=== PATIENT | female | born 1990 | race Caucasian/White ===

== ENCOUNTER 2021-11-13 15:03 | Emergency (ER) | payer OTHER, SELFPAY ==
[2021-11-13 15:39] VITALS: BP 103/52; PULSE 92; RESP 16; TEMP 36.9; O2SAT 100
== END 2021-11-13 16:55 | disposition left against medical advice (07) ==
LOC: EXPBETH 15:35
PROVIDERS: Emergency Provider Nurse Practitioner
DX: Z20.822 Contact with and (suspected) exposure to COVID-19 (principal)
CPT/HCPCS: 99199

== ENCOUNTER 2022-03-20 11:27 | Emergency (ER) | payer OTHER, SELFPAY ==
--- NOTE | 2022-03-20 11:30 | ED.EAR ---
HPI - Ear Problem General Chief complaint: Ear Stated complaint: Right ear Time Seen by Provider: 03/20/22 12:00 Source: patient and RN notes reviewed Mode of arrival: ambulatory Limitations: no limitations History of Present Illness HPI Narrative: Three 1-year-old female who is 35 weeks presents with concern for right ear pain. Reports symptoms started a couple weeks ago. Reports she has been taking Tylenol. Reports a feeling of her ear being clogged. She reports nasal congestion. Denies fever, body aches, chills, sweats, decreased hearing. MD Complaint: ear pain Related Data Allergies Allergy/AdvReac Type Severity Reaction Status Date / Time No Known Allergies Allergy Unverified 12/15/13 12:14 Review of Systems Review of Systems: CONSTITUTIONAL: Denies malaise, chills, sweats, or fever. EYES: Denies visual changes, redness, or discharge. ENT: Denies rhinorrhea, congestion, right ear pain. Denies sinus pain, and sore throat CARDIOVASCULAR: Denies chest pain, palpitations, or edema. RESPIRATORY: Denies cough. Denies dyspnea. GASTROINTESTINAL: Denies abdominal pain, nausea, vomiting, diarrhea SKIN: Denies rash or itching. MUSCULOSKELETAL: Denies myalgia. NEUROLOGIC: Denies headache. All systems reviewed & are unremarkable except as noted in HPI and below PMFSH Comments At time of signature, agree with nursing past medical, surgical, social and family history. There is no relevant family history pertinent to the presenting complaint Exam Narrative: GENERAL: Well-appearing, well-nourished, and in no acute distress. HEAD: Normocephalic EYES: PERRLA, conjunctivae clear ENT: Nares clear, turbinates edematous, clear discharge. Mucous membranes moist. TM pearly anthony with dull light reflex and slight bulging without erythema on the right, sharp reflex on the left; no tragal tenderness. Oropharynx not erythematous without lesions. Tonsils not enlarged and without exudate, no drooling, no hoarseness, no trismus, uvula midline. NECK: Supple. No lymphadenopathy CHEST: Clear to auscultation, breath sounds equal. No wheezing, rhonchi, rales, or stridor. No respiratory distress, speaks in full sentences. HEART: Regular rate and rhythm. No murmur heard. SKIN: Warm, dry, no rash. NEURO: Alert and oriented x3. PSYCH: Normal mood and affect Course Course Emergency Course: Patient is aware of diagnosis, understands and agrees to treatment plan. Anticipatory guidance given. Patient agrees to follow-up as directed and is aware of reasons to seek care at the emergency department. Portions of this record may have been created with voice recognition software Level of Care: Express Care Visit Vital Signs Vital signs: Reviewed. Medical Decision Making MDM Narrative Medical decision making narrative: Differential diagnosis considered: virus, strep pharyngitis, allergic rhinitis, upper respiratory tract infection, sinusitis, rhinosinusitis, nasopharyngitis. viral pharyngitis, otitis media, otitis externa, otitis effusion, cerumen impaction, foreign body. Exam findings show no acute concerns or changes; patient is non-toxic appearing and is in no distress. Patient is appropriate for outpatient treatment and follow-up. Critical Care Time Critical Care Time Critical Care Time: No Discharge Plan Discharge Clinical Impression: Acute dysfunction of right eustachian tube Patient Disposition: Home, Self-Care Condition: Stable Instructions: Fluid In The Ear (Serous Otitis Media) (ED) Additional Instructions: Flonase nasal spray, 2 sprays in each nostril once daily until symptoms improve Afrin nasal spray, do not use for more than 3 consecutive days. Also, recommend symptomatic treatment includes: rest, fluids, and increase humidity of the air at home. Recommend Acetaminophen as directed on the bottle to reduce fever, pain Please schedule a follow-up visit with your personal physician for further evaluation and treatment wi
[2022-03-20 11:39] VITALS: BP 107/59; PULSE 105; RESP 16; TEMP 36.4; O2SAT 100
== END 2022-03-20 12:18 | disposition home or self-care (01) ==
PROVIDERS: Emergency Provider Nurse Practitioner
DX: O99.891 Other specified diseases and conditions complicating pregnancy (principal); Z3A.35 35 weeks gestation of pregnancy; H69.91 Unspecified Eustachian tube disorder, right ear
CPT/HCPCS: 99213; G0463

== ENCOUNTER 2022-04-04 02:15 | Observation (INO) | payer OTHER, SELFPAY ==
[2022-04-04] VITALS (35 sets, daily range): BP systolic 110–127; BP diastolic 68–91; PULSE 41–138; O2SAT 84–100; BMI 22.9
--- NOTE | 2022-04-04 04:44 | OBADM ---
This patient, Virgen nA, admitted to the OB room Labor/Delivery/Recovery 104 for observation. Patient/family oriented to hospital policies and general routines including ID bracelet, bed and alarms, visiting hours, pain management, procedures, bathroom and other care routines, personal items, smoking policy, room service/diet, and visiting hours. Patient/Family are encouraged to report perceived risks to care and to ask questions if they do not understand what they are told or what they should do.
--- NOTE | 2022-04-06 16:02 | PM.OBTRLD ---
OB - Triage/Final Diagnosis Visit Information Date of evaluation: 04/04/22 Reason for evaluation: threatened labor Comments/Additional reasons for admission: I have assessed the risk for this patient, Virgen An, and determined that she would benefit from observation care.
== END 2022-04-04 04:58 | disposition home or self-care (01) ==
PROVIDERS: Admitting Provider Obstetrics & Gynecology; Visit Provider Obstetrics & Gynecology
DX: O47.9 False labor, unspecified (principal); Z3A.00 Weeks of gestation of pregnancy not specified
CPT/HCPCS: G0378; G0379

== ENCOUNTER 2022-04-13 06:19 | Inpatient (IN) | payer OTHER, SELFPAY ==
[2022-04-13] VITALS (53 sets, daily range): BP systolic 101–141; BP diastolic 43–88; PULSE 67–137; RESP 16–18; TEMP 36.2–36.6; O2SAT 100; BMI 23.4
--- OUTSIDE RECORDS SUMMARY | 2022-04-13 06:43 | XMS_ITS | Encounter Summary ---
:1990 Author Reason for Visit OB visit Assessment and Plan 1. Routine care 2. Grand multipara 3. Candidal vulvovaginitis ? Diflucan 150 mg tablet Discussion Note: None recorded.Patient educational handouts: No information available. Plan of Care Reminders Provider Appointments Ob Routine 04/17/2022 9:15AM Neisha Ramos MD ? Ob Routine 04/24/2022 9:15AM Neisha Ramos MD Lab None recorded. ? ? Referral None recorded. ? ? Procedures None recorded. ? ? Surgeries None recorded. ? ? Imaging None recorded. ? ? Medications Name Start Date ? ? fluticasone propionate 50 mcg/actuation nasal spray,roy spension ? USE 2 SPRAYS IN EACH NOSTRIL DAILY iron ? ? Medications Administered None recorded. Vitals Height Weight BMI Blood Pressure 5 ft 9 in 146 lbs 21.6 kg/m2 102/66 mm[Hg] Results Lab Results None recorded. Allergies Code Code System Name Reaction Severity Onset NKDA ? ? ? Problems Name Status Onset Date Source ? 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 Late Entry into Care Active 11/23/2021 ? Active 12/14/2021 ? Anemia of Active 03/27/2022 ? Procedures None recorded. Vaccine List None recorded. Social History Tobacco Smoking Status Never Smoker What is the highest grade or level of school you have comple ese or [id number] the highest degree you have received? What type of diet are you following? REGULAR
--- OUTSIDE RECORDS SUMMARY | 2022-04-13 06:43 | XMS_ITS | Encounter Summary ---
:1990 Author Reason for Visit OB visit Assessment and Plan 1. Routine care ? drug screen, urine 2. Anemia ? CBC w/ auto diff Discussion Note: None recorded.Patient educational handouts: No information available. Plan of Care Reminders Provider Appointments Ob Routine 04/17/2022 9:15AM Neisha Ramos MD ? Ob Routine 04/24/2022 9:15AM Neisha Ramos MD Lab Drug Screen, Urine 03/13/2022 [place] ? CBC W/ Auto Diff 03/13/2022 [facility] (Lab) Referral None recorded. ? ? Procedures None recorded. ? ? Surgeries None recorded. ? ? Imaging None recorded. ? ? Medications Name Start Date ? ? fluticasone propionate 50 mcg/actuation nasal spray,roy spension ? USE 2 SPRAYS IN EACH NOSTRIL DAILY iron ? ? Medications Administered None recorded. Vitals Height Weight BMI Blood Pressure 5 ft 9 in 154 lbs 22.7 kg/m2 111/68 mm[Hg] Results Lab Results Date Name Specimen Result Interpretation Description Value Range Status Address ? 03/13/2022 CBC W/ ? [facility] 9[facility]4 3[facility]10[facility]2 [facility] 10'3/uL 10'3/uL [address] [facility], [place] ? ? Low Rbc 3.20 (based on [facility]: 10'6/uL documented [address] sex) [facility] ld 4.10-5.30 ,
--- OUTSIDE RECORDS SUMMARY | 2022-04-13 06:43 | XMS_ITS | Encounter Summary ---
:1990 Author Reason for Visit OB visit Assessment and Plan 1. Grand multipara 2. Routine care Discussion Note: None recorded.Patient educational handouts: No [...] BMI Blood Pressure 5 ft 9 in 151 lbs 22.3 kg/m2 108/68 mm[Hg] Results Lab Results None recorded. Allergies [...] of school you have comple ese or [id number] the highest degree you have received? What type of diet are you following? REGULAR Are you able to walk? YESWOREST Has tobacco cessation counseling been provided? N
--- OUTSIDE RECORDS SUMMARY | 2022-04-13 06:43 | XMS_ITS | Encounter Summary ---
:1990 Author Reason for Visit OB visit Assessment and Plan Assessment Note Patient is ___weeks . Discussed plan. 1. Routine care Discussion Note: None recorded.Patient educational [...] BMI Blood Pressure 5 ft 9 in 147 lbs 21.7 kg/m2 111/69 mm[Hg] Results Lab Results None recorded. Allergies [...] of school you have comple ese or [id number] the highest degree you have received? What type of diet are you following? REGULAR Are you able to walk? YE
--- OUTSIDE RECORDS SUMMARY | 2022-04-13 06:43 | XMS_ITS | Encounter Summary ---
:1990 Author Reason for Visit OB visit Assessment and Plan 1. Grand multipara 2. Anemia of 3. Late entry into care Discussion Note: None recorded.Patient educational handouts: [...] BMI Blood Pressure 5 ft 9 in 155 lbs 22.9 kg/m2 117/76 mm[Hg] Results Lab Results None recorded. Allergies [...] of school you have comple ese or [id number] the highest degree you have received? What type of diet are you following? REGULAR Are you able to walk? YESWOREST
--- OUTSIDE RECORDS SUMMARY | 2022-04-13 06:43 | XMS_ITS | Encounter Summary ---
[...] BMI Blood Pressure 5 ft 9 in 152 lbs 22.4 kg/m2 103/64 mm[Hg] Results Lab Results None recorded. Allergies [...] of school you have comple ese or [id number] the highest degree you have received? What type of diet are you following? REGULAR Are you able to walk? YE
--- OUTSIDE RECORDS SUMMARY | 2022-04-13 06:43 | XMS_ITS | Encounter Summary ---
:1990 Author Reason for Visit None recorded. Assessment and Plan 1. Grand multipara 2. Anemia of Discussion Note: None recorded.Patient educational handouts: No [...] ft 9 in 154 lbs 22.7 kg/m2 114/75 mm[Hg] Results Lab Results None recorded. Allergies [...] of school you have comple ese or [id number] the highest degree you have received? What type of diet are you following? REGULAR Are you able to walk? YESWOREST Has tobacco cessation counseling been provided? N
--- OUTSIDE RECORDS SUMMARY | 2022-04-13 06:43 | XMS_ITS ---
:1990 Author Care Team Providers Name Role Phone Richard Neisha Arriolase Primary Care Provider Unavailable Allergies Code Code System Name Reaction Severity Status Onset NKDA ? Medications Name Status Start Date Stop Date ? ? amoxicillin 500 mg tablet Completed ? 2021 TAKE 1 TABLET BY MOUTH 2 TIMES DAILY FOR 7 DAYS benzonatate 100 mg capsule Completed ? 11/23 ciprofloxacin 0.3 %-dexamethasone 0.1 % ear drops,suspension Com pleted ? 11/23/2021 INSTILL 4 DROPS IN THE RIGHT EAR EVERY 12 HOURS FOR 7 DAYS cyclobenzaprine 10 mg tablet Completed ? TAKE 1 TABLET BY MOUTH THREE TIMES DAILY NEEDED FOR MUSCLE S PASMS fluconazole 150 mg tablet Completed ? 2021 TAKE 1 TABLET BY MOUTH EVERY 72 HOURS FOR 6 DAYS fluticasone propionate 50 mcg/actuation nasal spray,suspension A ctive ? Not available USE 2 SPRAYS IN EACH NOSTRIL DAILY ibuprofen 800 mg tablet Completed ? 11/23/19 TAKE 1 TABLET BY MOUTH EVERY 8 HOURS NEEDED FOR FEVER iron Active ? Not available ondansetron HCl 4 mg tablet Completed ? 02/04 Active ? Not available prochlorperazine maleate 5 mg tablet Completed ? 11/23/2021 TAKE 1 TO 2 TABLETS BY MOUTH EVERY 6 HOURS NEEDED FOR NAUSEA Problems Name Status Onset Date Source ? 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 Late Entry into Care Active 11/23/2021 ? Active 12/14/2021 ? Anemia of Active 03/27/2022 ? Procedures Date Name Performed by ? 11/23/2021 , Obstetric, [facility]
--- OUTSIDE RECORDS SUMMARY | 2022-04-13 06:43 | XMS_ITS | Encounter Summary ---
:1990 Author Reason for Visit OB visit Assessment and Plan 1. Routine care ? drug screen, urine 2. Anemia of Discussion Note: None recorded.Patient educational handouts: No information available. Plan of Care Reminders Provider Appointments Ob Routine 04/17/2022 9:15AM Neisha Ramos MD ? Ob Routine 04/24/2022 9:15AM Neisha Ramos MD Lab Drug Screen, Urine 03/27/2022 [place] Referral None recorded. ? ? Procedures None recorded. ? ? Surgeries None recorded. ? ? Imaging None recorded. ? ? Medications Name Start Date ? ? fluticasone propionate 50 mcg/actuation nasal spray,roy spension ? USE 2 SPRAYS IN EACH NOSTRIL DAILY iron ? ? Medications Administered None recorded. Vitals Height Weight BMI Blood Pressure 5 ft 9 in 156 lbs 23 kg/m2 111/73 mm[Hg] Results Lab Results Date Name Specimen Result Interpretation Description Value Range Status Address ? 03/27/2022 Drug Screen, Urine ? Amphetamines: negative ? ? Ismael: Urine [address] [place] ? ? Urine ? Cannabinoids: negative ? ? Ismael: [address] [place] ? ? Urine ? Opiates: negative ? ? [place]:
--- NOTE | 2022-04-13 06:52 | LDADM ---
This patient, Virgen An, was admitted to Labor/Delivery/Recovery 105 on 04/13/22 at 06:19. Plans for labor, pain management and were discussed with patient. Patient/family oriented to hospital policies and general routines including ID bracelet, bed and alarms, visiting hours, pain management, procedures, bathroom and other care routines, personal items, smoking policy, room service/diet and guest tray routines, infant security routines, and visiting hours. Patient/Family are encouraged to report perceived risks to care and to ask questions if they do not understand what they are told or what they should do. See OBIX for further documentation.
--- NOTE | 2022-04-13 07:13 | WPDHPUPDATE1 ---
History and Physical Update Update Date/Time: 04/13/22 07:13 This patient is a 31 year multiparous female who presents for labor. Artificial rupture of membranes was performed. She may have artery ruptured. There was reassuring status. She is 4 cm/ 80%/ -1. Expected management. History and Physical has been reviewed, including an updated exam of the patient. There are NO changes in the patient's condition. Risks, benefits, and alternatives have been discussed and questions answered. Patient agrees to proceed with procedure.
[2022-04-13 07:16] LABS: Basophils Percent Auto 0.2 % (0.2-1.2); Eosinophils Absolute Auto 0.2 K/mm3 (0-0.3); Eosinophils Percent Auto 1.2 % (0-4.4); Hematocrit 30.7 % (37.0-47.0); Hemoglobin 9.5 g/dL (12.0-15.0); Immature Granulocyte Absolute 0.24 K/mm3 (0.00-0.031); Immature Granulocyte Percent A 1.8 % (0-0.5); Lymphocytes Absolute Auto 2.19 K/mm3 (0.9-3.2); Lymphocytes Percent Auto 16.1 % (18.3-44.2); Mean Corpuscular HGB Conc 30.9 g/dl (32-36); Mean Corpuscular Hemoglobin 25.4 pg (26-34); Mean Corpuscular Volume 82.1 fl (80-100); Mean Platelet Volume 10.7 fl (7.4-10.4); Monocytes Absolute Auto 1.2 K/mm3 (0.1-0.6); Neutrophils Absolute Auto 9.8 K/mm3 (1.3-6.7); Neutrophils Percent Auto 71.7 % (45.5-73.1); Platelet Count Result 331 k/mm3 (150-375); Red Blood Count 3.74 M/mm3 (4.2-5.4); Red Cell Distribution Width 18.6 % (11.5-14.5); White Blood Count 13.6 K/mm3 (4.5-10.0)
--- NOTE | 2022-04-13 07:23 | WPDANESEPPF ---
Anes - Initial Pre Proc Eval Date/Time: 04/13/22 07:23 Surgeon: Neisha Ramos MD Pre Op Diagnosis: Labor Patient Data Age: 31 Gender: F Height: 1.75 m Weight: 72 kg Last Vital Signs Pulse 116 H 04/13/22 07:20 BP 111/62 04/13/22 07:20 Pulse Ox 100 04/13/22 07:22 O2 Del Method Room Air 04/13/22 06:49 Allergies Allergy/AdvReac Type Severity Reaction Status Date / Time No Known Allergies Allergy Verified 04/10/22 10:14 Home Medications Medication Instructions Recorded Confirmed Type fluticasone propionate 50 2 spray intranasal DAILY 14 days 03/20/22 04/10/22 Rx mcg/actuation nasal #15.8 mL spray,suspension (Flonase Allergy Relief) vits 75-iron 28 mg-folic 1 pkg PO DAILY 04/04/22 04/10/22 History acid 800 mcg-omega3 440 mg oral pack Laboratory Tests 04/13/22 04/13/22 04/13/22 06:59 06:59 06:59 WBC Pending RBC Pending Hgb Pending Hct Pending MCV Pending MCH Pending MCHC Pending RDW Pending Plt Count Pending MPV Pending Immature Gran % (Auto) Pending Neut % (Auto) Pending Lymph % (Auto) Pending [place] % (Auto) Pending Eos % (Auto) Pending Baso % (Auto) Pending Lymph # (Auto) Pending [place] # (Auto) Pending Eos # (Auto) Pending Baso # (Auto) Pending Abs Immat Gran (auto) Pending Absolute Neuts (auto) Pending Absolute Nucleated RBC Pending Nucleated RBC % Pending Urine Opiates Screen Pending Urine Methadone Screen Pending Ur Barbiturates Screen Pending Ur Phencyclidine Scrn Pending Ur Amphetamine Screen Pending U Benzodiazepines Scrn Pending Urine Cocaine Screen Pending U Cannabinoids Screen Pending RPR Pending Patient hx anesthesia problems: none Family hx anesthesia problems: none Results Review: All pre-operative results and documents have been reviewed as part of the pre-operative evaluation. PMFSH Family History Family History Other No pertinent family history Social History Social History Smoking status: Never smoker Substance use: former Spiritual care concerns: No Anes - Eval Final PreProcedure Day of Procedure 04/13/22 07:23 Patient weight: normal Heart: regular rate and rhythm Lungs: clear to auscultation Neurological: alert and oriented ASA classification: II Emergent: no Anesthetic plan: proceed Anesthesia type and monitoring: regional epidural and standard monitoring Results Review: All pre-operative results and documents have been reviewed as part of the pre-operative evaluation. Informed Consent: The patient's anesthetic plan and its attendant risks and benefits were discussed with the patient/family/POA. Questions were solicited and answers provided to the satisfaction of the patient/family/POA.
[2022-04-13] MEDS: LACTATED RINGERS 1,000 ML 125 ML IV CONT (07:27)
[2022-04-13] MEDS: OXYTOCIN 30 UNITS/NS 500 ML 30 UNITS/500 ML BAG IV CONT (07:28)
[2022-04-13 08:13] LABS: Amphetamine Screen Urine Negative (Negative); Barbiturate Screen Urine Negative (Negative); Benzodiazepines Screen Urine Negative (Negative); Cannabinoid Screen Urine Negative (Negative); Cocaine Screen Urine Negative (Negative); Methadone Screen Urine Negative (Negative); Opiate Screen Urine Negative (Negative); Phencyclidine Screen Urine Negative (Negative)
[2022-04-13] MEDS: ONDANSETRON INJ 4 MG/2 ML VIAL IV PUSH (08:23)
[2022-04-13] MEDS: OXYTOCIN 30 UNITS/NS 500 ML 30 UNITS/500 ML BAG 125 UNITS IV CONT (09:26)
[2022-04-13] MEDS: WITCH HAZEL 40 PADS 1 PAD TOPICAL (11:07)
[2022-04-13] MEDS: BENZOCAINE 20% AER SPR (*SP) 56 GM CAN 1 SPRAY TOPICAL (11:07)
--- NOTE | 2022-04-13 11:26 | OBPPTRN ---
Patient transferred to post room # 283 via wheelchair accompanied by in open crib. PT sole recipient of instructions. Oriented to unit, room, information board, rooming in, admission packet and security measures. PT introductions made and plan of care discussed per post , pain management, breast feeding, and daily care activities. PT received such instructions this shift via one to one discussion, mom baby care guide, demonstrations Patient verbalizes understanding and no barriers to learning identified at this time.
[2022-04-13] MEDS: ACETAMINOPHEN 325 MG TABLET 650 MG PO ×2 (12:37→18:04)
[2022-04-13] MEDS: IBUPROFEN 600 MG TABLET PO ×2 (12:40→18:05)
[2022-04-13] MEDS: POLYSACCHARIDE IRON COMPLEX 150 MG CAPSULE PO (18:04)
[2022-04-13] MEDS: DOCUSATE SODIUM 100 MG CAPSULE PO (18:04)
[2022-04-14] VITALS: BP 110/67; PULSE 63; RESP 18; TEMP 37
[2022-04-14] MEDS: ACETAMINOPHEN 325 MG TABLET 650 MG PO ×3 (00:08→16:52)
[2022-04-14] MEDS: IBUPROFEN 600 MG TABLET PO ×2 (00:08→05:42)
[2022-04-14 04:00] VITALS: BP 96/57; PULSE 68; RESP 18; TEMP 36.8
[2022-04-14 05:18] LABS: Hematocrit 27.2 % (37.0-47.0); Hemoglobin 8.2 g/dL (12.0-15.0)
[2022-04-14 06:10] LABS: Rapid Plasma Reagin Non-Reactive (NonReactive)
--- NOTE | 2022-04-14 06:24 | P.PNOB_ITS ---
OB - PN: Subj Subjective Date/time seen: 04/14/22 06:24 Patient comments: no complaints and pain well controlled baby status: nursing well feeding status: exclusively breast feeding OB - PN: Obj Data Labs CBC & Chem 7: 04/14/22 03:01 Labs: Laboratory Results - last 24 hr 04/13/22 04/13/22 04/13/22 06:59 06:59 06:59 WBC 13.6 H RBC 3.74 L Hgb 9.5 L Hct 30.7 L MCV 82.1 MCH 25.4 L MCHC 30.9 L RDW 18.6 H Plt Count 331 MPV 10.7 H Immature Gran % (Auto) 1.8 H Neut % (Auto) 71.7 Lymph % (Auto) 16.1 L [place] % (Auto) 9.0 H Eos % (Auto) 1.2 Baso % (Auto) 0.2 Lymph # (Auto) 2.19 [place] # (Auto) 1.2 H Eos # (Auto) 0.2 Baso # (Auto) 0.0 Abs Immat Gran (auto) 0.24 H Absolute Neuts (auto) 9.8 H Absolute Nucleated RBC 0.0 Nucleated RBC % 0.0 Urine Opiates Screen Urine Methadone Screen Ur Barbiturates Screen Ur Phencyclidine Scrn Ur Amphetamine Screen U Benzodiazepines Scrn Urine Cocaine Screen U Cannabinoids Screen RPR Non-reactive Blood Type O Positive Antibody Screen Negative 04/13/22 04/14/22 06:59 03:01 WBC RBC Hgb 8.2 L Hct 27.2 L MCV MCH MCHC RDW Plt Count MPV Immature Gran % (Auto) Neut % (Auto) Lymph % (Auto) [place] % (Auto) Eos % (Auto) Baso % (Auto) Lymph # (Auto) [place] # (Auto) Eos # (Auto) Baso # (Auto) Abs Immat Gran (auto) Absolute Neuts (auto) Absolute Nucleated RBC Nucleated RBC % Urine Opiates Screen Negative Urine Methadone Screen Negative Ur Barbiturates Screen Negative Ur Phencyclidine Scrn Negative Ur Amphetamine Screen Negative U Benzodiazepines Scrn Negative Urine Cocaine Screen Negative U Cannabinoids Screen Negative RPR Blood Type Antibody Screen OB - PN A/P Plan day: 1 Plan: routine care Time Spent With Patient Time: Total time spent is greater than 50% in coordination of care (as documented) at patient's floor/unit and/or counseling patient: Time with patient: less than 15 minutes Exam Narrative: NAD abdomen soft, nontender, fundus firm below the umbilicus Extremities nontender, 1+ edema
[2022-04-14 09:50] VITALS: BP 111/59; PULSE 74; RESP 18; TEMP 35.8; O2SAT 100
[2022-04-14] MEDS: MULTIVIT/MIN/PREN/FOL AC/IRON TABLET 1 TAB PO (09:56)
[2022-04-14] MEDS: POLYSACCHARIDE IRON COMPLEX 150 MG CAPSULE PO ×2 (09:56→16:53)
[2022-04-14] MEDS: DOCUSATE SODIUM 100 MG CAPSULE PO ×2 (09:57→16:52)
--- NOTE | 2022-04-14 10:29 | WPDANLDPN2 ---
Anes-Prog Note L&D Date/Time: 04/14/22 10:29 Comfortable throughout: labor and delivery Neuraxial method: epidural Epidural/Spinal procedure site: clean & non-tender Neuro status: Neuro function grossly intact. Cardiovascular status: normal Respiratory status: normal Airway patency: baseline Mental status: baseline Post-Op hydration status: normal Vital Signs: Last Vital Signs Temp 36.8 C 04/14/22 04:00 Pulse 68 04/14/22 04:00 Resp 18 04/14/22 04:00 BP 96/57 L 04/14/22 04:00 Pulse Ox 100 04/13/22 11:45 O2 Del Method Room Air 04/14/22 04:00 Pain score (VAS): 0 I/O: Intake & Output 04/13/22 04/14/22 04/14/22 23:59 07:59 15:59 Intake Total 240 400 Balance 240 400 Post-procedural complaints: none Patient feedback: Patient satisfied with anesthetic care.
--- NOTE | 2022-04-14 10:30 | WPDANESPN ---
Anes - Prog Note Post-Op Date/Time: 04/14/22 10:30 Cardiovascular status: normal Respiratory status: normal Airway patency: baseline Mental status: baseline Post-Op hydration status: normal Vital Signs: Last Vital Signs Temp 36.8 C 04/14/22 04:00 Pulse 68 04/14/22 04:00 Resp 18 04/14/22 04:00 BP 96/57 L 04/14/22 04:00 Pulse Ox 100 04/13/22 11:45 O2 Del Method Room Air 04/14/22 04:00 Pain Score (VAS): 0 I/O: Intake & Output 04/13/22 04/14/22 04/14/22 23:59 07:59 15:59 Intake Total 240 400 Balance 240 400 Laboratory Tests 04/14/22 03:01 04/13/22 04/14/22 06:59 03:01 Hgb 8.2 L Hct 27.2 L RPR Non-reactive Post-procedural complaints: none Patient Feedback: Patient satisfied with anesthetic care.
[2022-04-14 19:30] VITALS: BP 111/70; PULSE 67; RESP 16; TEMP 36.6; O2SAT 100
--- NOTE | 2022-04-15 09:34 | PM.OBPNVD ---
OB - PN: Subj Subjective Date/time seen: 04/15/22 09:34 s/p vaginal delivery, no complaints. OB - PN: Obj Data Labs CBC & Chem 7: 04/14/22 03:01 OB - PN A/P Plan day: 2 Plan: discharge home Time Spent With Patient Time: Total time spent is greater than 50% in coordination of care (as documented) at patient's floor/unit and/or counseling patient: Review of Systems Review of Systems: All systems reviewed & are unremarkable except as noted in HPI and below Exam Const: General: cooperative, healthy appearing and comfortable
--- NOTE | 2022-04-15 09:36 | PM.OBDSVD ---
DS: Admitting Diagnosis Discharge Date 04/15/22 Admitting Diagnosis Labor OB - DS: Summary OB Procedures : None OB Procedures Intrapartum: Spontaneous Vag Delivery OB Procedures: : None Time Spent with Patient Time attestation: Total time spent providing and/or coordinating discharge services: Discharge Plan Discharge Attending physician on discharge: Clair Pierson Discharging Clinician: Nicol Solis Patient Disposition: Home, Self-Care Activity: pelvic rest Diet: regular Patient Instructions: Antibiotic Form Stand Alone Forms: General Discharge Information Follow-up/Referrals: Clair Pierson MD [Physician] - 4 Weeks Discharge Medications: Continued fluticasone propionate [Flonase Allergy Relief] 50 mcg/actuation spray,suspension 2 spray NASAL DAILY 14 Days Qty: 15.8 0RF Rx Instructions: administer into each nostril -tzfn fum-folic ac-om3 [id number] mg-mcg-mg Combo Pack 1 pkg PO DAILY Date of admission: 04/13/22 06:19 Primary Care Provider: UNKNOWN,DOCTOR Admitting Provider: Neisha Ramos Attending physician on admission: Neisha Ramos Condition: Stable
[2022-04-15] MEDS: ACETAMINOPHEN 325 MG TABLET 650 MG PO (10:15)
[2022-04-15 10:16] VITALS: BP 100/63; PULSE 95; RESP 16; TEMP 36.8; O2SAT 99
[2022-04-15] MEDS: MULTIVIT/MIN/PREN/FOL AC/IRON TABLET 1 TAB PO (10:16)
[2022-04-15] MEDS: POLYSACCHARIDE IRON COMPLEX 150 MG CAPSULE PO (10:16)
[2022-04-15] MEDS: DOCUSATE SODIUM 100 MG CAPSULE PO (10:16)
--- NOTE | 2022-04-15 10:18 | WPDANLDNPN2 ---
Anes-Prog Note L&D-Neuraxial Date/Time: 04/15/22 10:18 Patient feedback: Patient satisfied with post-operative pain management. Comments: No apparent anesthesia related complications
--- NOTE | 2022-04-15 13:39 | PC.NURSE ---
1315 Patient was given the opportunity to view the discharge video Mother & Baby Care, The First Two Weeks and to ask questions. Patient declined viewing the video and has been given the mother/baby guide for home reference. She stated she watched this with her other births.
[2022-04-17 09:18] VITALS: BP 112/74; PULSE 83; RESP 16; TEMP 36.9; O2SAT 99
--- NOTE | 2022-04-23 14:08 | P.PCNOB_ITS ---
OB - Delivery Note Procedure Procedure: Delivery augmentation: Rupture of Membranes Delivery monitor: External FHT and External Uterine Route of delivery: Episiotomy description: None Laceration Description: None Complications: none [place] Baby Date of : 04/13/22 Time of : 08:50 Weeks of gestation at delivery: 38 Weight (pounds): 8 Weight (ounces): 11 score one minute: 8 score five minutes: 9
== END 2022-04-15 13:15 | disposition home or self-care (01) | DRG 560 ==
LOC: ANHOB2 04-15 11:34 → ANHLDR 04-18 08:26 → ANHOB2 04-18 08:26
PROVIDERS: Admitting Provider Obstetrics & Gynecology; Visit Provider Obstetrics & Gynecology
DX: O80 Encounter for full-term uncomplicated delivery (principal); Z37.0 Single live birth; Z3A.38 38 weeks gestation of pregnancy
CPT/HCPCS: 36415; 80307; 85014; 85018; 85025; 86592; 86850; 86900; 86901; A9270; J2405; J2590; J2795; J7120

== ENCOUNTER 2024-07-04 00:57 | Day surgery (SDC) | payer OTHER, SELFPAY ==
[2024-07-04] VITALS (20 sets, daily range): BP systolic 90–128; BP diastolic 44–74; PULSE 48–90; RESP 12–20; TEMP 36.2–36.9; O2SAT 99–100; BMI 21.2
--- NOTE | 2024-07-04 07:27 | P.PNAN_ITS ---
Anes - Initial Pre Proc Eval Procedure: Operation Date: 07/04/24 12:30 Proposed Procedures p Suction Dilation and Curettage - Micky Pierson MD Date/Time: 07/04/24 07:27 Surgeon: Micky Pierson MD Pre Op Diagnosis: Missed AB Patient Data Age: 33 Gender: F Height: Weight: Allergies Allergy/AdvReac Type Severity Reaction Status Date / Time No Known Allergies Allergy Verified 07/04/24 10:44 Home Medications Medication Instructions Recorded Confirmed Type vits 75-iron 28 mg-folic 1 pkg PO DAILY 04/04/22 07/04/24 History acid 800 mcg-omega3 440 mg oral pack Patient hx anesthesia problems: none Family hx anesthesia problems: none Results Review: All pre-operative results and documents have been reviewed as part of the pre- operative evaluation. FORMERLY [facility], [facility] Family History Family History Other No pertinent family history Social History Social History Smoking status: Never smoker Substance use: former Substance use type: marijuana Living arrangements: with family Spiritual care concerns: No Anes - Eval Final PreProcedure Day of Procedure 07/04/24 07:27 Patient weight: normal Heart: regular rate and rhythm Lungs: clear to auscultation and normal air movement Airway: Mallampati scale class II Neurological: alert and oriented Last oral intake: >/= 8 hours ASA classification: II Emergent: no Anesthetic plan: proceed Anesthesia type and monitoring: general GIVS and standard monitoring Results Review: All pre-operative results and documents have been reviewed as part of the pre- operative evaluation. Informed Consent: The patient's anesthetic plan and its attendant risks and benefits were discussed with the patient/family/POA. Questions were solicited and answers provided to the satisfaction of the patient/family/POA.
[2024-07-04] MEDS: LACTATED RINGERS 1,000 ML 30 ML IV CONT ×4 (11:04→19:41)
--- NOTE | 2024-07-04 12:35 | WPDHPUPDATE1 ---
History and Physical Update Update Date/Time: 07/04/24 12:35 History and Physical has been reviewed, including an updated exam of the patient. There are NO changes in the patient's condition. Risks, benefits, and alternatives have been discussed and questions answered. Patient agrees to proceed with procedure.
[2024-07-04] MEDS: LIDOCAINE HCL 1% LOCAL INJ 20 ML VIAL 10 ML INFILTRATE (13:03)
[2024-07-04] MEDS: miSOPROStol 200 MCG TABLET 1000 MCG RECTAL (13:26)
--- NOTE | 2024-07-04 13:51 | P.OP_ITS ---
Procedure Note - Detailed Date of Procedure 07/04/24 Pre-op Diagnosis Missed AB Post-op Diagnosis Same Procedure Performed Dilatation and evacuation Surgeon Micky Pierson MD Anesthesia MAC Indications missed st 16 weeks Findings normal-appearing vulva vagina and cervix to. well organized 16 week gestation. 16 cm uterus Description of Procedure the patient was taken the operating room. She was prepped and draped in dorsal lithotomy position after induction of mac anesthesia. A speculum was placed in the vagina. Cervix grasped with tenaculum. The cervix was dilated to about 1 cm Using Foreman dilators. A 14. Greenlandic curved curette was used to perform D&E. The curette was introduced and vacuum was applied. The curette was removed over all surfaces of the intrauterine cavity multiple times. Using ring forceps was required to remove bony parts of the fetus. Moderate bleeding was observed. Cytotec was placed in the rectum. Curette and instrument removal of part was done until all the surfaces were clear and had the familiar grainy texture they can be felt through the instrument. A sharp curette was then used to curettage all the surfaces. The suction cup was then reapplied 1 more time to remove any debris. The instruments were removed. The speculum and tenaculum were removed. The patient tolerated the procedure well. She was taken recovery room stable condition. Estimated Blood Loss 200 Drains No Packing No Pathology Yes Complications No immediate complications Condition Stable Disposition PACU
--- NOTE | 2024-07-04 13:54 | SUR.PHASEII ---
Patient has O+ blood type. No Rhogam needed.
[2024-07-04] MEDS: LOPERAMIDE HCL 2 MG CAPSULE 4 MG PO (15:22)
[2024-07-04] MEDS: CARBOPROST TROMETHAMINE 250 MCG/ML AMPUL IM (15:25)
--- NOTE | 2024-07-04 16:03 | SUR.PHASEII ---
Dr. Pierson notified for patient saturating pad again. He is coming over to outpatient to see patient himself.
[2024-07-04] MEDS: TRANEXAMIC ACID 1,000MG/ISO100 1,000 MG/100 ML BAG 200 MG IVPB (16:35)
--- NOTE | 2024-07-04 16:44 | SUR.PHASEII ---
Dr. Pierson inserted a HOGAN into the uterus to slow down bleeding.
[2024-07-04] MEDS: oxyCODONE HCL (*CRX) 5 MG TAB IR PO (16:52)
[2024-07-04 17:22] LABS: Hematocrit 33.7 % (37.0-47.0); Hemoglobin 11.1 g/dL (12.0-15.0); Mean Corpuscular HGB Conc 32.9 g/dl (32-36); Mean Corpuscular Hemoglobin 29.8 pg (26-34); Mean Corpuscular Volume 90.3 fl (80-100); Platelet Count Result 209 k/mm3 (150-375); Red Blood Count 3.73 M/mm3 (4.2-5.4); Red Cell Distribution Width 14.6 % (11.5-14.5); White Blood Count 12.8 K/mm3 (4.5-10.0)
--- NOTE | 2024-07-04 18:06 | PM.GYNPNOP ---
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 was placed in the uterus and the bulb was expanded. This seemed to diminish bleeding but not entirely. Bleeding persisted. Despite some medical treatments, that included TXA, Hemabate, Cytotec, the bleeding persisted. We agreed to return to the operating room to examine and resolved the bleeding. The patient understands risks, benefits, and alternative. She has completed informed consent process is ready to proceed. Postoperative Procedures: Procedures Operation Date: 07/04/24 12:30 Actual Procedure Side Surgeon p Suction Dilation and Curettage Not Applicable Micky Pierson MD Time Spent With Patient Time: Total time spent is greater than 50% in coordination of care (as documented) at patient's floor/unit and/or counseling patient: Time with patient: 15 - 25 minutes SERVICENOW ADMINISTRATOR DEVELOPER- PN:Subj Post-Op Subjective Date/time seen: 07/04/24 18:06 Interval history: 33-year-old female who had a missed miscarriage that was 16 weeks, has started bleeding just after the D&E/D&C. was placed in the uterus and the bulb was expanded. This seemed to diminish bleeding but not entirely. Bleeding persisted. Despite some medical treatments, that included TXA, Hemabate, Cytotec, the bleeding persisted. We agreed to return to the operating room to examine and resolved the bleeding. The patient understands risks, benefits, and alternative. She has completed informed consent process is ready to proceed. Review of Systems Review of Systems: All systems reviewed & are unremarkable except as noted in HPI and below Constitutional: Constitutional: Denies chills, Denies fatigue, Denies fever(s) and Denies weakness Eyes: Eyes: Denies blurry vision, Denies change in vision, Denies loss of peripheral vision, Denies loss of vision, Denies other visual disturbances and Denies eye pain ENT: Denies vertigo, Denies dizziness, Denies hearing loss, Denies mouth pain, Denies nasal obstruction, Denies neck mass and Denies neck pain Cardiovascular: Cardiovascular: Denies chest pain, Denies diaphoresis, Denies syncope, Denies leg edema and Denies dyspnea Respiratory: Respiratory: Denies chest congestion, Denies cough, Denies hemoptysis, Denies dyspnea and Denies wheezing Gastrointestinal: Gastrointestinal: Denies abdominal pain, Denies constipation, Denies diarrhea, Denies nausea and Denies vomiting Genitourinary: Genitourinary: Denies hematuria, Denies change in libido, Denies nocturia, Denies genital lesions, Denies flank pain and Denies urinary urgency Musculoskeletal: Musculoskeletal: Denies abnormal gait, Denies back pain, Denies myalgias, Denies arthralgias, Denies joint swelling, Denies muscle weakness and Denies neck pain Integumentary/Breasts: Skin/Breast: Denies swelling, Denies breast pain, Denies breast mass, Denies dry skin, Denies nipple discharge, Denies unusual bruising and Denies jaundice Neurologic: Denies Neuro-related abnormal movements, Denies Abnormal speech present, Denies abnormal gait, Denies behavioral changes, Denies confusion, Denies vertigo, Denies dizziness, Denies syncope, Denies loss of vision, Denies memory loss, Denies convulsions and Denies weakness Psychiatric: Psychiatric: Denies abnormal sleep pattern, Denies behavioral changes, Denies change in libido, Denies confusion, Denies depression, Denies anhedonia and Denies memory loss Endocrine: Endocrine: Reports no additional endocrine complaints, Denies change in libido and Denies fatigue Hematologic/Lymphatic: Hematologic/Lymphatic: Reports no additional hematologic/lymphatic complaints Allergic/Immunologic: Allergic/Immunologic: Reports no additional allergic/im
--- NOTE | 2024-07-04 18:17 | P.PNAN_ITS ---
Anes - Eval Pre Procedure Procedure: Operation Date: 07/04/24 12:30 Proposed Procedures p Suction Dilation and Curettage - Micky Pierson MD Date/Time: 07/04/24 18:17 Surgeon: Kenna Preop Diagnosis: Retained Products Pre Op Diagnosis: Missed AB Patient Data Age: 33 Gender: F Height: 1.75 m Weight: 65.1 kg Last Vital Signs Temp 36.6 C 07/04/24 10:35 Pulse 67 07/04/24 18:00 Resp 14 07/04/24 18:00 BP 122/61 07/04/24 18:00 Pulse Ox 100 07/04/24 14:05 O2 Del Method Room Air 07/04/24 18:00 O2 Flow Rate 8 07/04/24 13:36 Allergies Allergy/AdvReac Type Severity Reaction Status Date / Time No Known Allergies Allergy Verified 07/04/24 10:44 Home Medications Medication Instructions Recorded Confirmed Type vits 75-iron 28 mg-folic 1 pkg PO DAILY 04/04/22 07/04/24 History acid 800 mcg-omega3 440 mg oral pack Laboratory Tests 07/04/24 07/04/24 10:57 17:18 WBC 12.8 H K/mm3 (4.5-10.0) RBC 3.73 L M/mm3 (4.2-5.4) Hgb 11.1 L g/dL (12.0-15.0) Hct 33.7 L % (37.0-47.0) MCV 90.3 fl (80-100) MCH 29.8 pg (26-34) MCHC 32.9 g/dl (32-36) RDW 14.6 H % (11.5-14.5) Plt Count 209 k/mm3 (150-375) MPV 10.0 fl (7.4-10.4) Blood Type O Positive Antibody Screen Negative Screen Not Reportable Baby's Blood Type Not Reportable Baby's LAURA Not Reportable Doses of RhIg Required 0 Patient hx anesthesia problems: none Family hx anesthesia problems: none Results Review: All pre-operative results and documents have been reviewed as part of the pre- operative evaluation. PMFSH Family History Family History Other No pertinent family history Social History Social History Smoking status: Never smoker Substance use: former Substance use type: marijuana Living arrangements: with family Spiritual care concerns: No Exam Day of Procedure 07/04/24 18:17 Patient weight: normal Heart: regular rate and rhythm Lungs: normal air movement Airway: Mallampati scale class II Neurological: alert and oriented
[2024-07-04] MEDS: LIDOCAINE HCL 1% LOCAL INJ 20 ML VIAL 12 ML INFILTRATE (18:40)
[2024-07-04] MEDS: ceFAZolin SODIUM 1 GM VIAL 2 GM IV PUSH (18:44)
--- NOTE | 2024-07-04 19:22 | W.PM.PROC2 ---
Procedure Note - Detailed Date of Procedure 07/04/24 Pre-op Diagnosis postoperative bleeding Post-op Diagnosis Same Procedure Performed surgical treatment of vaginal bleeding /postoperative bleeding/bleeding of the cervix. Surgeon Micky Pierson MD Anesthesia MAC Findings No visible laceration. Bleeding was observed from right side of the endocervical canal Description of Procedure 33-year-old female was taken the operative room. She was prepped and draped in dorsal thigh position after induction of MAC anesthesia. A speculum was placed in the vagina. A Moreau bulb that had been placed the uterus was removed. The cervix was examined. It was grasped with a tenaculum. Sutures were then placed in a [id number] fashion in the right lateral aspect of the cervix. The sutures incorporated the endocervix along with portions of the distal and lateral cervix on the right side. Two sutures were placed. Hemostasis appeared to be achieved. The tenaculum was removed. There was bleeding at the tenaculum sites and sutures placed there as well in a [id number] fashion making hemostatic. The endocervix was then packed with Surgicel. Cervix was completely hemostatic at the end of the case. The uterus was ultrasounded. There was no content within the intrauterine cavity - No space-occupying substance. The procedure was terminated. She was taken recovery room stable condition. Sponge lap and needle counts were correct x2. Estimated Blood Loss 75
--- NOTE | 2024-07-04 20:07 | ADMGEN ---
This patient, Virgen An, was admitted to Medical Room 340-01. Patient/family oriented to hospital policies and general routines including ID bracelet, bed and alarms, visiting hours, pain management, procedures, bathroom and other care routines, personal items, smoking policy, room service/diet, and visiting hours. Information on how to activate the Rapid Response Team has been discussed. Patient/Family are encouraged to report perceived risks to care and to ask questions if they do not understand what they are told or what they should do.
[2024-07-05 00:42] VITALS: BP 98/48; PULSE 74; RESP 18; TEMP 37.1; O2SAT 99
[2024-07-05 05:34] VITALS: BP 92/50; PULSE 62; RESP 18; TEMP 36.9; O2SAT 99
--- NOTE | 2024-07-05 07:49 | PM.GYNPNOP ---
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 No shortness of breath, no dizziness. Continue dis Postoperative Procedures: Procedures Operation Date: 07/04/24 12:30 Actual Procedure Side Surgeon p Suction Dilation and Curettage Not Applicable Micky Pierson MD Operation Date: 07/04/24 18:20 Actual Procedure Side Surgeon p surgical control of vaginal bleeding Not Applicable Micky Pierson MD Time Spent With Patient Time: Total time spent is greater than 50% in coordination of care (as documented) at patient's floor/unit and/or counseling patient: Time with patient: less than 15 minutes TOUR PRODUCTION SUPERVISOR- PN:Subj Post-Op Subjective Date/time seen: 07/05/24 07:49 minimal bleeding overnight, no pain, no nausea, vomiting, fever, chills. No shortness of breath, no dizziness. Continue discharge home. Interval history: 33-year-old female who had a missed miscarriage that was 16 weeks, has started bleeding just after the D&E/D&C. was placed in the uterus and the bulb was expanded. This seemed to diminish bleeding but not entirely. Bleeding persisted. Despite some medical treatments, that included TXA, Hemabate, Cytotec, the bleeding persisted. We agreed to return to the operating room to examine and resolved the bleeding. The patient understands risks, benefits, and alternative. She has completed informed consent process is ready to proceed. TOUR PRODUCTION SUPERVISOR - PN: Obj Data Vital Signs Vital Signs: Vital Signs - 24 hr 07/04/24 10:35 07/04/24 13:36 07/04/24 14:05 Temperature 97.9 F Pulse Rate 83 55 L 48 L Respiratory Rate 14 Blood Pressure 107/62 90/56 L 92/62 L Pulse Oximetry 100 100 100 Oxygen Delivery Room Air Simple Face Mask Room Air Oxygen Flow Rate 8 07/04/24 14:35 07/04/24 15:05 07/04/24 15:35 Temperature Pulse Rate 80 74 90 Respiratory Rate Blood Pressure 122/65 109/60 128/69 Pulse Oximetry Oxygen Delivery Room Air Room Air Room Air Oxygen Flow Rate 07/04/24 16:05 07/04/24 16:35 07/04/24 17:05 Temperature Pulse Rate 73 55 L 67 Respiratory Rate Blood Pressure 105/69 117/74 122/61 Pulse Oximetry Oxygen Delivery Room Air Room Air Room Air Oxygen Flow Rate 07/04/24 17:30 07/04/24 18:00 07/04/24 18:30 Temperature Pulse Rate 59 L 67 58 L Respiratory Rate 14 14 14 Blood Pressure 119/58 L 122/61 113/71 Pulse Oximetry Oxygen Delivery Room Air Room Air Room Air Oxygen Flow Rate 07/04/24 19:12 07/04/24 19:15 07/04/24 19:30 Temperature 97.2 F L Pulse Rate 61 52 L 51 L Respiratory Rate 16 12 12 Blood Pressure 97/66 L 98/64 L 103/65 Pulse Oximetry 100 99 99 Oxygen Delivery Room Air Room Air Room Air Oxygen Flow Rate 07/04/24 19:45 07/04/24 20:11 07/04/24 20:04 Temperature 98.2 F Pulse Rate 56 L 56 L Respiratory Rate 12 20 Blood Pressure 101/65 101/59 L Pulse Oximetry 100 100 Oxygen Delivery Room Air Room Air Oxygen Flow Rate 07/04/24 20:34 07/04/24 20:57 07/04/24 21:16 Temperature 98.1 F 98.2 F 98.4 F Pulse Rate 65 81 75 Respiratory Rate 18 18 20 Blood Pressure 104/64 103/46 L 91/44 L Pulse Oximetry 100 100 100 Oxygen Delivery Oxygen Flow Rate 07/05/24 00:42 07/05/24 05:34 Temperature 98.7 F 98.5 F Pulse Rate 74 62 Respiratory Rate 18 18 Blood Pressure 98/48 L 92/50 L Pulse Oximetry 99 99 Oxygen Delivery Oxygen Flow Rate Intake/Output Intake/Output: Intake & Output 07/02/24 07/03/24 07/04/24 07/05/24 23:59 23:59 23:59 23:59 Intake Total 800 240 Balance 800 240 Meds/Results Medications: Active Medications Generic Name Dose Route Start Last Admin Trade Name Freq PRN Reason Stop Dose Admin Hydrocodone Hong
== END 2024-07-05 09:00 | disposition home or self-care (01) ==
LOC: ANHSURGERY 17:18 → ANH3MED 19:51
PROVIDERS: Visit Provider Obstetrics & Gynecology
PROC: (CPT 59821; principal; 2024-07-04 13:30)
DX: O02.1 Missed abortion (principal); N99.820 Postprocedural hemorrhage of a genitourinary system organ or structure following a genitourinary system procedure; Y83.8 Other surgical procedures as the cause of abnormal reaction of the patient, or of later complication, without mention of misadventure at the time of the procedure
CPT/HCPCS: 59821; 57720; 36415; 85027; 85461; 86850; 86900; 86901; 88305; A9270; J0690; J1100; J2250; J2405; J2704; J3010; J7120